=== PATIENT | male | born 1990 | race African-American/Black ===

== ENCOUNTER 2021-05-13 19:23 | Emergency (ER) | payer OTHER ==
[2021-05-13 19:34] VITALS: BP 116/78; PULSE 111; RESP 18; TEMP 98.2
[2021-05-13] MEDS ORDERED: HYDROcodone/APAP 5-325MG 1 EACH TAB PO STA (19:51)
[2021-05-13] MEDS ORDERED: LIDOCAINE VISCOUS 2% 15 ML CUP MUCOUS MEM ONE (19:51)
--- NOTE | 2021-05-13 19:52 | ED ---
General Adult HPI - General Chief complaint: Dental/Oral Stated complaint: dental pain Source: patient, RN notes reviewed, old records reviewed Mode of arrival: ambulatory Limitations: no limitations - History of Present Illness Initial comments: Patient is a 30-year-old male who presents complaining of dental pain. No past medical history. Recently moved here. Complaining of right lower tooth pain. Is due to get the tooth removed tomorrow. Yesterday received antibiotics from another hospital but no pain medication. Complaining as he is complaining of bad tooth pain at that site. Denies any worsening swelling, fevers, chills. States he has been taking antibiotics. He believes he is taking penicillin as his antibiotic. Has been trying take Motrin without much relief. Presents over concern for his to pain. Denies any difficulty swallowing, breathing. Denies any neck tenderness or swelling. Denies any chest pain, shortness breath. His no other acute complaints at this time. - Related Data Previous Rx's Medication Instructions Recorded HYDROcodone/APAP 5-325MG [[place] 5] 1 each PO Q6HR PRN 3 Days #12 tab 05/13/21 Allergies Allergy/AdvReac Type Severity Reaction Status Date / Time No Known Allergies Allergy Verified 05/13/21 19:34 Review of Systems ROS Statement: Those systems with pertinent positive or pertinent negative responses have been documented in the HPI. ROS Other: All systems not noted in ROS Statement are negative. Past Medical History Past Medical History: No Reported History History of Any Multi-Drug Resistant Organisms: None Reported Past Surgical History: No Surgical Hx Reported Past Psychological History: No Psychological Hx Reported Smoking Status: Current every day smoker Past Alcohol Use History: None Reported Past Drug Use History: None Reported General Exam - General Exam Comments Initial Comments: General: Appears in moderate distress secondary to right ear pain. HEAD: Normal with no signs of head trauma. EYES: EOMI ENT: Hearing grossly intact. Patient's right inferior posterior wisdom tooth appears cracked. Some mild erythema around the base. No floor the mouth swelling or neck swelling. No obvious purulent discharge. Tongue is not swollen. Posterior oropharynx is unremarkable. No stridor auscultated. RESPIRATORY: Clear breath sounds bilaterally. No wheezes, rales, or rhonchi. C/V: Mildly tachycardic, likely secondary to pain. Afebrile. ABD: Abd is soft, nontender, nondistended EXT: Normal range of motion, no obvious deformity SKIN: No rashes or lesions observed on exposed skin. NEURO: Alert and oriented 4. Limitations: no limitations Course Vital Signs 05/13/21 19:32 Temperature 98.2 F Pulse Rate 111 H Respiratory 18 Rate Blood Pressure 116/78 O2 Sat by Pulse 97 Oximetry Medical Decision Making - Medical Decision Making Patient presents with dental pain. Is already on antibiotics. Is seeking pain medications. Is due to follow-up with his dentist tomorrow to have the tooth removed. His attempted use [id number] medication without relief. I do not believe he has any laboratory studies or imaging at this time. Patient has localized tooth pain and infection. No concern for airway compromise. No concern for spreading neck infection. Therefore we will administer one [place] as well as viscous lidocaine. He is already on antibiotics, penicillin. I recommended he continue the antibiotic and that he follow up with his dentist tomorrow. He was in agreement this plan. He will be given a prescription for [place]. He completed opiate form. Patient was in agreement this plan. I will provide the patient with a prescription for [place] 5, 12 tabs. I instructed the patient to follow up with their PCP in the next 3 days. . I explained that the patient should return to the emergency department if they experience any worsening symptoms. Strict return precautions were discussed with the patient. The patient expressed understanding of these instructions. I answered all questions that the patient had. The patient was discharged home in good condition with their prescriptions and follow up information. Disposition Clinical Impression: Pain, dental Disposition: HOME SELF-CARE Condition: Good Instructions (If sedation given, give patient instructions): Toothache (ED) Prescriptions: HYDROcodone/APAP 5-325MG [[place] 5] 1 each PO Q6HR PRN 3 Days #12 tab PRN Reason: Pain Is patient prescribed a controlled substance at d/c from ED?: Yes When asked, does pt state using other controlled substances?: No If prescribed controlled substance>3 days was MAPS reviewed?: Prescribed <3 Days If opioid is for acute pain is fill amount 7 days or less?: Yes If Rx opioid, was Start Talking consent form obtained?: Yes Referrals: None,Stated [Primary Care Provider] - 1-2 days
== END 2021-05-13 20:16 | disposition home or self-care (01) ==
LOC: EC 19:23
DX: K08.89 Other specified disorders of teeth and supporting structures (principal); F17.200 Nicotine dependence, unspecified, uncomplicated
CPT/HCPCS: 99282